=== PATIENT | male | born 1950 | race Caucasian/White ===

== ENCOUNTER 2021-06-08 18:56 | Inpatient (IN) | payer MEDICARE, OTHER ==
[~2021-06-08] VITALS: Ht 167.6 cm; Wt 70.3 kg
--- NOTE | ~2021-06-08 | OP ---
[address] [address] OPERATIVE REPORT Name: JAMIA SIMOMNS Room: [address] Steph Andrews#: [id number] Admission: 06/08/21 Attend Phys: Son Cárdenas MD Discharge: Date of : 46 Report #: [id number] THIS REPORT FOR: cc: CHAVA - No family physician/PCP CHAVA - No family physician/PCP Obed Barrientos MD ~ DATE OF SURGERY: 06/09/2021 PREOPERATIVE DIAGNOSIS: A 6 mm proximal right ureteral stone. POSTOPERATIVE DIAGNOSIS: A 6 mm proximal right ureteral stone. PROCEDURE: Cystoscopy, right retrograde pyelogram, right ureteroscopy with right ureteral stent placement. STAFF SURGEON: Obed Barrientos MD MACHINE SHOP SUPERVISOR: None. ANESTHESIA: General. ESTIMATED BLOOD LOSS: None. COMPLICATIONS: None. SPECIMENS: None. DRAINS: 26 cm x 4.8-Monegasque right ureteral stent. INDICATIONS FOR THE PROCEDURE: The patient is a pleasant 71-year-old white male with history of kidney stones who presented to [facility] where CT scan confirmed a 6 mm proximal ureteral stone with hydronephrosis. He also has some nonobstructing left renal calculi. He was admitted to the hospital for pain control. He was seen this morning and evaluated and discussed management. He elected for definitive cystoscopy, right retrograde pyelogram, right ureteroscopy, possible holmium laser lithotripsy, possible placement of right ureteral stent. After risks and benefits of the procedure explained, informed consent was obtained. DESCRIPTION OF PROCEDURE: The patient was taken to the operating room, comfortably placed in the dorsal lithotomy position under adequate general anesthesia. He was sterilely prepped and draped in standard fashion exposing only the genitalia. He received 2 grams of intravenous Ancef. Appropriate timeout was carried out and all were in agreement. A 22-Monegasque cystoscope was placed in the urethra. 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 He had some trilobar prostatic hyperplasia with a median lobe. Bladder was systematically viewed. Both ureteral orifices identified normal. No bladder calculi seen or foreign body observed. Mild trabeculation noted in the bladder wall, able to cannulate the right ureteral orifice and retrograde pyelogram performed showing normal filling in the right collecting system with a filling defect in the proximal ureter, actually witnessed, looked like filling defect pushed into the renal pelvis just by retrograde pyelogram. An 0.035 Glidewire was advanced up the right ureter at the level of kidney. Cystoscope was removed and a 4.5-Monegasque tapered to a 6.5-Monegasque Velasquez semi-rigid ureteroscope, advanced through the urethra up the right ureter all the way to the ureteropelvic junction. No stone noted in the ureter. 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 I would like to place a smaller diameter stent since there was not much room in the renal pelvis for the coil to set. A semirigid scope was removed and cystoscope backloaded over the guidewire and a 26 cm x 4.8-Monegasque ureteral stent was put in place and a kind of a near coil in the little renal pelvis he had and a good coil in the bladder. The bladder was drained, cystoscope was removed. He tolerated the procedure extremely well. He was extubated in the operating room, transferred to [facility] with assistance and went to recovery in stable condition. Could identify that proximal stone under fluoroscopy, if he tolerates the stent is a good candidate for ESWL and if he does not tolerate, then anticipate stage 2 procedure, cystoscopy, right stent removal, right ureteroscopy, possible holmium laser lithotripsy, possible placement of right ureteral stent. By: [id number] Barrientos MD /carolina
[2021-06-08] MEDS ORDERED: SIMVASTATIN80 MG (19:18)
[2021-06-08] MEDS ORDERED: PROTONIX40 M2 (19:18)
[2021-06-08] MEDS ORDERED: METOPROLOL TART25 MG (19:19)
[2021-06-08] MEDS ORDERED: AMITRIPTYLINE PO (19:19)
[2021-06-08] MEDS ORDERED: VASOTEC5 MG (19:20)
[2021-06-08] MEDS ORDERED: LIPITOR40 MG (19:20)
[2021-06-08] MEDS ORDERED: FISH OIL 1,0001 EAC9 (19:20)
[2021-06-08] MEDS ORDERED: BRILINTA90 MG (19:21)
[2021-06-08] MEDS ORDERED: NITROSTAT0.4 M1 (19:21)
[2021-06-08] MEDS ORDERED: DONEPEZIL PO (19:21)
[2021-06-08] MEDS ORDERED: CHILDREN'S ASPI81 M1 (19:22)
[2021-06-08 19:24] VITALS: BP 167/72
[2021-06-08 19:44] LABS: ABSOLUTE BASOPHILS 0.1 thou/uL (0.0-0.2); ABSOLUTE EOSINOPHILS 0.2 thou/uL (0.0-0.7); ABSOLUTE LYMPHOCYTES 1.6 thou/uL (0.8-5.3); ABSOLUTE MONOCYTES 0.4 thou/uL (0.0-1.2); ABSOLUTE NEUTROPHILS 3.1 thou/uL (1.6-8.1); BASOPHILS 1.2 %; EOSINOPHILS 3.7 %; HEMATOCRIT 34.6 % (42.0-52.0); HEMOGLOBIN 11.6 gm/dL (14.0-18.0); LYMPHOCYTES 29.7 %; MCHC 33.6 g/dL (28.0-37.0); MCV 86.2 fL (80.0-100.0); MONOCYTES 7.9 %; MPV 8.3 fl. (7.2-11.1); NUCLEATED RBCS 0 /100WBC; PLATELET COUNT* 199 thou/uL (150-400); POLYS 57.5 %; RBC 4.01 mil/uL (4.50-6.00); RDW-CV 14.9 % (10.5-14.5); WBC 5.4 thou/uL (4.0-11.0)
[2021-06-08 19:50] LABS: CALCIUM 8.7 mg/dL (8.5-10.1); CREATININE 1.1 mg/dL (0.6-1.3); POTASSIUM 3.9 mmol/L (3.5-5.1)
[2021-06-08 19:54] LABS: ALBUMIN 3.2 g/dL (3.4-5.0); TOTAL BILIRUBIN 0.4 mg/dL (<0.1-1.0); TOTAL PROTEIN 7.3 g/dL (6.4-8.2)
[2021-06-08 20:36] LABS: URINE BILIRUBIN NEGATIVE (Negative); URINE BLOOD 3+ (Negative); URINE CLARITY CLEAR; URINE COLOR YELLOW; URINE GLUCOSE-RANDOM NEGATIVE (Negative); URINE KETONES NEGATIVE (Negative); URINE LEUKOCYTES-REFLEX TRACE (Negative); URINE NITRITE-REFLEX NEGATIVE (Negative); URINE PROTEIN NEGATIVE (Negative); URINE SPECIFIC GRAVITY <= 1.005 (1.005-1.030); URINE UROBILINOGEN 0.2 E.U./dl (0.2-1.0)
[2021-06-08 20:43] LABS: BACTERIA-REFLEX 1-9 Few /HPF (None Seen); SQUAMOUS 0-3 Few /LPF (0-3); URINE RBC >20 Many /HPF (0-2); URINE WBC-REFLEX 0-5 Rare /HPF (0-5)
[2021-06-08 20:44] LABS: AMORPHOUS URATES Moderate /LPF (None Seen); HYALINE CASTS 0-3 Few /LPF (None Seen); MUCUS 0-3 Light strn/LPF (None Seen)
[2021-06-09] VITALS (8 sets, daily range): BP systolic 152–185; BP diastolic 68–97
--- NOTE | 2021-06-09 06:35 | NUR ---
NOTIFIED JAC (FAMILY) @ [phone] RE: PT ADMISSION VOICEMAIL LEFT
--- NOTE | 2021-06-09 06:46 | NUR ---
Admission to at 0550. He was admitted with 6mm stone in rt ureter. He lives at [facility]. He is alert and oriented x 4 but maybe slightly forgetful. Lungs clear to ausclutation, HRRR. His rapid covid test was negative. He states that he was vaccinated for covid and influenza. He does use a cane to walk so he is on fall precautions. Security did come and took his wallet with $17 and his ID,paper in chart. He is NPO and Dr Barrientos called and plans to do procedure today. [facility]
--- NOTE | 2021-06-09 07:20 | NUR ---
CHANGE OF SHIFT REPORT GIVEN PATIENT SEEN AT BEDSIDE, IN BED WATCHING TV ASSUMED PATIENT CARE
--- NOTE | 2021-06-09 10:21 | EKG ---
[place] [address] ELECTROCARDIOGRAM REPORT Name: JAMIA SIMMONS Room: [address]R.#: [id number] Admission: 06/08/21 Attend Phys: Son Cárdenas, Discharge: Date of : 46 Date of Service: 06/08/211919 Report #: [id number] THIS REPORT FOR: //name// [facility] ED Test Date: 2021-06-08 Test Time: 19:20:33 Pat Name: JAMIA SIMMONS Department: Room: [facility] Gender: M [address] Designer: BLAYNE : 1950 Requested By: Jermain Louie Order Number: [id number] MD: Speedy Angulo Measurements Intervals Lavinia Rate: 58 P: 29 NH: 196 QRS: 58 QRSD: 116 T: 55 QT: 455 QTc: 447 Interpretive Statements Sinus rhythm Nonspecific intraventricular conduction delay No previous ECG available for comparison Electronically Signed On 06-09-2021 10:21:29 DATA REDUCTION TECHNICIAN by Speedy Angulo [email or web address] <ELECTRONICALLY SIGNED> By: Speedy Angulo MD, FAC 06/09/21 1021 192 19 Speedy Angulo MD, [facility] /EPI
--- NOTE | 2021-06-09 18:15 | NUR ---
patient transferred to 309 telephone report given to frederic roman patient and dajuan sent with patient patient assisted by wc to 309 and daughter notified of move
--- NOTE | 2021-06-09 18:25 | NUR ---
PATIENT TRANSFERED TO FLOOR AT THIS TIME VIA WHEELCHAIR ACCOMPANIED BY STAFF. PATIENT RESTING IN BED. ORIENTED TO ROOM AND FLOOR. IV TO LEFT HAND WITH NORMAL SALINE INFUSING AT 100MLS/HR. ALERT AND ORIENTED X4 WITH SOME FORGETFULLNESS. BED IN LOW/LOCKED POSITION. BED ALARM ON. CALL LIGHT WITHIN REACH. DAUGHTER AT BEDSIDE INVOLVED WITH CARES. NO QUESTIONS OR CONCERNS VOICED.
--- NOTE | 2021-06-10 05:26 | NUR ---
PATIENT HAS REMAINED ALERT AND ORIENTED X 1-2. EXTREMELY IMPULSIVE. DAUGHTER WAS AT BEDSIDE AT SHIFT START; UPSET AND CRYING FATHER WOULD NOT LISTEN TO HER AND STAY IN THE BED. PATIENT MOVED TO ROOM BY NURSES STATION. ALL FALL PRECAUTIONS IN PLACE. DAUGHTER DID GO HOME AFTER PLAN IN PLACE FOR THIS MOVE. PATIENT REPEATEDLY TRIGGERED BED ALARM. PATIENT NOT ALWAYS ABLE TO VERBALIZE NEEDS AND WILL SAY SOMETHING OTHER THAN WHAT HE HAS IN MIND. 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 MOST OF THESE TIMES HE WANTED TO TRY AND URINATE. PATIENT HAS BEEN ABLE TO URINATE ONLY IN VERY SMALL INADEQUATE AMOUNTS. URINE REMAINS RED WITH A FEW CLOTS. BLADDER SCAN AT 2040 842 ML. CALL PLACED TO DR. HATHAWAY TO REPORT. DUE TO IMPULSIVENESS AND CONFUSION, ORDER RECEIVED FOR PRN STRAIGHT CATH RATHER THAN INDWELLING BRUSH CATHETER. STRAIGHT CATH HAS BEEN PROVIDED X 2 OF THIS WRITING. FOR RESIDUALS OF 1050 ML AND 950 ML. AMBULATING TO BR WITH GAIT BELT, WALKER AND MIN/CGA. SMALL BM OVERNIGHT. VITAL SIGNS STABLE WITH HYPERTENSION. PATIENT VERY PLEASANT AND AGREEABLE: JUST VERY IMPULSIVE AND CONFUSED NOTED ABOVE. CONTINUE TO MONITOR.
[2021-06-10 12:05] LABS: ABSOLUTE LYMPHOCYTES 0.7 thou/uL (0.8-5.3); ABSOLUTE MONOCYTES 0.4 thou/uL (0.0-1.2); ABSOLUTE NEUTROPHILS 6.1 thou/uL (1.6-8.1); BASOPHILS 0.5 %; EOSINOPHILS 0.7 %; HEMATOCRIT 34.5 % (42.0-52.0); HEMOGLOBIN 11.4 gm/dL (14.0-18.0); MCH 28.3 pg (26.0-34.0); MCHC 32.9 g/dL (28.0-37.0); MCV 85.9 fL (80.0-100.0); MPV 8.3 fl. (7.2-11.1); NUCLEATED RBCS 0 /100WBC; PLATELET COUNT* 193 thou/uL (150-400); POLYS 82.8 %; RBC 4.02 mil/uL (4.50-6.00); RDW-CV 14.9 % (10.5-14.5); WBC 7.4 thou/uL (4.0-11.0)
[2021-06-10 12:22] LABS: CALCIUM 8.3 mg/dL (8.5-10.1); CREATININE 1.1 mg/dL (0.6-1.3); POTASSIUM 3.5 mmol/L (3.5-5.1)
--- NOTE | 2021-06-10 12:55 | NUR ---
1145: PATIENT WITH LITTLE URINE OUTPUT. BLADDER SCAN SHOWING GREATER THE [address] FRANCISCO NOTIFIED. NEW ORDER: INSERT BRUSH CATHETER. 18 YORUBA BRUSH CATHETER INSERTED AT THIS TIME VIA STERILE PROTOCOL. INSERTION WITHOUT DIFFICULTIES. 10ML STERILE WATER INFALTED BALLOON. BRUSH SECURELY IN PLACE. PATIENT TOLERATED PROCEDURE WITHOUT DIFFICULTIES. WILL CONTINUE TO MONITOR.
[2021-06-10 16:03] VITALS: BP 173/79
--- NOTE | 2021-06-10 18:16 | NUR ---
Case Management Assessment CM met with pt to complete assessment. Pt was a poor historian. Pt may reside in memory care, but this needs to be confirmed with DPOA. CM attempted to make contact with DPOA, but was unsuccesful. CM to attempt to reach DPOA at later time. Pt at [facility] for rght ureteral calculus. Pt not medically clear for discharge.
[2021-06-10 21:05] VITALS: BP 183/92
[2021-06-10 23:00] VITALS: BP 167/77
--- NOTE | 2021-06-11 04:12 | NUR ---
PT ALERT, ORIENTED TO SELF AND PLACE, IMPULSIVE. VSS ON ROOM AIR, UP WITH ASSIST WITH GB AND CANE, URINARY CATHETER IN PLACE, IV FLUIDS INFUSING ORDERED. PT SLEEPING WELL, WILL CONTINUE TO MONITOR.
[2021-06-11 08:00] VITALS: BP 158/92
[2021-06-11] MEDS ORDERED: FLOMAX0.4 MG PO (14:02)
[2021-06-11] MEDS ORDERED: LEVSIN0.125 MG SUBLING (14:13)
--- NOTE | 2021-06-11 17:03 | NUR ---
Case Management Followup Pt medically clear for discharge. Pt was scheduled to dischrage back to [facility]. However, pt could not return due to blank that urology requests remain in. Pt's daughter (Anel Tamez - [phone]) had safety concers about bringing pt home with her. Pt to be linked to skilled at [facility].
--- NOTE | 2021-06-11 17:04 | NUR ---
CM Assessment - CM unable to conduct assessment with pt as he was a poor historian. CM completed assessment with pt's daughter (Anel Tamez - [phone]). This writer editor was informed that pt lives in [facility] and would be able to return upon discharge. Pt needs assistance with medication management, but does dress/groom self. Pt uses a cane. Pt has HH services at [facility]. Pt has no rehab history. CM to followup.
--- NOTE | 2021-06-11 17:24 | NUR ---
Case Management Followup Pt not eligible for skilled services and will be discharged home with daughter 06/12/21 with and private duty.
--- NOTE | 2021-06-11 18:53 | NUR ---
PT WAS TO GO BACK TO [facility] BUT COULD NOT DUE TO THE BRUSH CATHETER HE HAS FOR RETENTION. VSS AFEBRILE. PT HAS BEEN PLEASANT ALL DAY LOOKING FOR HIS DAUGHTER. WILL CONTINUE TO MONITOR PLAN OF CARE.
[2021-06-11 21:00] VITALS: BP 119/86
--- NOTE | 2021-06-12 04:27 | NUR ---
PT A&O X 2, FORGETFUL. VSS ON RA. MEDS GIVEN ORDERED. NO C/O PAIN. BRUSH CATH IN PLACE. PT SLEPT MOST OF THE NIGHT. BED ALARM ON FOR SAFETY. WILL CONTINUE TO MONITOR.
[2021-06-12 08:00] VITALS: BP 188/100
[2021-06-12 08:01] VITALS: BP 119/86
[2021-06-12 11:22] VITALS: BP 119/86
[2021-06-12 12:56] VITALS: BP 119/86
--- NOTE | 2021-06-12 16:10 | NUR ---
PT DISCHARGED HOME WITH HIS DAUGHTER. DAUGHTER SHOWED THIS RN HOW TO DRAIN PT BRUSH CATH. DAUGHTER DID WELL AND KEPT EVERYTHING CLEAN. PT UP WAS AND AMBULATED TO WHEEL CHAIR WITH STEADY GAIT AND THE USE OF HIS WALKER. SALINE LOCK REMOVED HUB INTACT. PT DISMISSED HOME WITH ALL BELONGINGS. PT HAS DENIED PAIN ON DISMISSAL.
--- NOTE | 2021-06-12 16:22 | NUR ---
CM Followup Pt to be discharged home with daughter (Anel Tamez - [phone]) with HH services through [facility]. Daughter to transport pt.
== END 2021-06-12 16:00 | disposition home health service (06) | DRG 660 ==
LOC: M.ERS 18:56 → M.TBA-ER 20:39 → M.2W 06-09 02:29 → M.3W 06-09 18:24
PROVIDERS: Emergency Medicine; Internal Medicine; Nurse Practitioner Psychiatric/Mental Health; ADMIT Internal Medicine; ATTEND Internal Medicine
DX: N13.2 Hydronephrosis with renal and ureteral calculous obstruction (principal); E44.0 Moderate protein-calorie malnutrition; Z20.822 Contact with and (suspected) exposure to COVID-19; I49.3 Ventricular premature depolarization; Z79.899 Other long term (current) drug therapy; I25.10 Atherosclerotic heart disease of native coronary artery without angina pectoris; E78.00 Pure hypercholesterolemia, unspecified; F03.90 Unspecified dementia, unspecified severity, without behavioral disturbance, psychotic disturbance, mood disturbance, and anxiety; R31.9 Hematuria, unspecified; I10 Essential (primary) hypertension; R33.9 Retention of urine, unspecified; Z68.25 Body mass index [BMI] 25.0-25.9, adult

== ENCOUNTER 2021-06-13 13:46 | Emergency (ER) | payer MEDICARE, OTHER ==
[~2021-06-13] VITALS: Ht 167.6 cm; Wt 70.3 kg
[~2021-06-13 13:46] MED LIST: AMITRIPTYLINE PO; BRILINTA90 MG; CHILDREN'S ASPI81 M1; DONEPEZIL PO; FISH OIL 1,0001 EAC9; FLOMAX0.4 MG PO; LEVSIN0.125 MG SUBLING; LIPITOR40 MG; METOPROLOL TART25 MG; NITROSTAT0.4 M1; PROTONIX40 M2; SIMVASTATIN80 MG; VASOTEC5 MG
[2021-06-13 16:48] VITALS: BP 147/83
== END 2021-06-13 16:49 | disposition home or self-care (01) ==
LOC: M.ERS 13:46
DX: T83.9XXA Unspecified complication of genitourinary prosthetic device, implant and graft, initial encounter (principal); E78.00 Pure hypercholesterolemia, unspecified; F32.9 Major depressive disorder, single episode, unspecified; Z79.899 Other long term (current) drug therapy